=== PATIENT | male | born 2000 | race Caucasian/White ===

== ENCOUNTER 2022-03-05 20:38 | Emergency (ER) | payer OTHER ==
[2022-03-05] MEDS ORDERED: Lidocaine 1% with EPINEPHrine 1:100,000 10 ML MDV INJECT ONE (21:06)
== END 2022-03-05 21:27 | disposition home or self-care (01) ==
LOC: MW.ED 20:38
DX: S81.012A Laceration without foreign body, left knee, initial encounter (principal); V86.56XA Driver of dirt bike or motor/cross bike injured in nontraffic accident, initial encounter
CPT/HCPCS: 12002; 99282